=== PATIENT | male | born 1950 | race Caucasian/White ===

== ENCOUNTER 2016-09-21 11:25 | Outpatient (CLI) | payer MEDICARE ==
[~2016-09-21] VITALS: Ht 188 cm; Wt 118.2 kg
--- NOTE | ~2016-09-21 | HEMODYNAMI ---
PATIENT:JUMANA SANDOVAL MEDICAL RECORD: [id number] : 46 LOCATION:D.CAT ADMISSION DATE: 09/21/16 Generatedon:09/21/201615:23 Patient name: JUMANA SANDOVAL Patient #: [id number] SSN: : 1950 Date of study: 09/21/2016 Page: Of Hemodynamic Procedure Report Patient Data Patient Demographics Procedure consent was obtained First Name: JUMANA Gender: Male Last Name: LORI : 1950 Middle Initial: D Age: 66 year(s) Patient #: [id number] Race: Additional ID: [id number] Contact details Address: [address] [place] [address] State: [place] City: [place] Zip code: [address] Past Medical History Allergies Allergen Reaction Date Comments Reported Other allergy 06/28/2016 PCN, Sulfa Other allergy 09/21/2016 PCN, SULFA Admission Admission Data Admission Date: 09/21/2016 Admission Time: 11:25 Admit Source: Other Insurance Payor: Medicare Height (in.): 74 BSA: 2.43 (m2) Height (cm.): 187.96 BMI: 33.45 (kg/m2) Weight (lbs.): 260.54 Weight (kg.): 118.18 Medications upon Admission Medications Dosage Times Administered Last Remarks per Delivery Day Date and Time Clopidogrel Yes 09/21/2016 0:00 Lab Results Lab Result Date: 09/21/2016 Lab Result Time: 12:22 Biochemistry Name Units Result Min Max BUN mg/dl 18 --(---*)-- 7 18 Creatinine mg/dl 1 --(--*-)-- 0.6 1.3 CBC Name Units Result Min Max Hematocrit % 42.9 --(*---)-- 42 54 Hemoglobin g/dl 14 --(*---)-- 13.5 17.5 Procedure Procedure Types Cath Procedure Peripheral Cath Diagnostic Procedure Cath Peripheral Ycacu-Czkxopo-Uwr-Off Procedure Description Procedure Date Procedure Date: 09/21/2016 Procedure Start Time: 15:05 Procedure End Time: 15:22 Procedure Staff Name Function Zak Mckeon MD Performing Physician Fidel Wen RT Scrub Thea Nunez RN Nurse Juno Mas RT Monitor Renetta Valenzuela RT Monitor Procedure Data Cath Procedure Fluoroscopy Diagnostic fluoroscopy Total fluoroscopy Time: 1.5 time: 1.5 min min Diagnostic fluoroscopy Total fluoroscopy dose: 284 dose: 284 mGy mGy Contrast Material Contrast Material Type Amount (ml) Isovue 300 136 Entry Location Entry Primary Successful Side Size Upsize Upsize Entry Closure Succes sful Closure Location (Fr) 1 (Fr) 2 (Fr) Remarks Device Remarks Femoral Left 5 Fr Exoseal artery Estimated blood loss: 5 ml Diagnostic catheters Device Type Used For End Catheter Placement Cordis Tempo 5Fr UF Abdominal catheter aortogram with runoff Procedure Complications No complications Procedure Medications Medication Administration Route Dosage Oxygen NC 2 l/min Heparin Flush Bag added to field 2 bags (1000units/500ml NS) Lidocaine 2% added to field 20 Versed I.V. 1 mg Fentanyl I.V. 50 mcg Versed I.V. 1 mg Fentanyl I.V. 50 mcg Versed I.V. 0.5 mg Fentanyl I.V. 50 mcg Hemodynamics Rest BSA: 2.43 (m2) HGB: 14 (g/dl) O2 Consumption: Estimated: 288.64 (ml/min) O2 Cons umption indexed: Estimated:118.78 (ml/min/m) Heart Rate: 77 (bpm) Snapshots Pre Cath Intra NCS Post Cath Vital Signs Time Heart Resp SPO2 etCO2 [id number] NIBP (mmHg) Rhythm Pain Sedatio n Rate (ipm) (%) (mmHg) (mmHg) Status Level (bpm) 14:42:46 74 15 98 0 0 168/106(157) NSR 0 (11) 10(A) , No pain 14:47:06 77 17 96 0 0 168/98(152) NSR 0 (11) 10(A) , No pain 14:51:26 72 15 95 0 0 158/96(124) NSR 0 (11) 10(A) , No pain 14:55:44 77 15 96 0 0 155/99(134) NSR 0 (11) 10(A) , No pain 15:00:02 74 16 96 0 0 157/90(142) NSR 0 (11) 10(A) , No pain 15:04:20 76 16 95 0 0 157/93(140) NSR 0 (11) 10(A) , No pain 15:08:39 70 21 97 0 0 158/94(125) NSR 0 (11) 9(A) , No pain 15:12:57 82 16 95 0 0 151/93(131) NSR 0 (11) 9(A) , No pain 15:15:14 76 16 97 0 0 165/96(134) NSR 0 (11) 10(A) , No pain 15:19:32 76 10 97 0 0 161/98(135) NSR 0 (11) 10(A) , No pain Medications Time Medication Route Dose Verified Delivered Reason Notes Effec tiveness by by 14:45:59 Oxygen NC 2 Zak Thea Per l/min Mike Nunez RN physician 14:46:06 Heparin Flush added 2 Zak Zak used for Bag to bags Mike Mckeon MD procedure (1000units/500ml field NS) 14:46:14 Lidocaine 2% added 20ml Zak Zak used for to vial Mike Mckeon MD procedure field 14:59:49 Versed I.V. 1 mg Zak Thea for Mike Nunez RN sedation 15:00:03 Fentanyl I.V. 50 Zak Thea for mcg Mike Nunez RN sedation 15:03:54 Versed I.V. 1 mg Zak Thea for Mike Nunez RN sedation 15:04:01 Fentanyl I.V. 50 Zak Thea for mcg Mike Nunez RN sedation 15:06:32 Versed I.V. 0.5 Zak Thea for mg Mike Nunez RN sedation 15:06:35 Fentanyl I.V. 50 Zak Thea for mcg Mike Nunez RN sedation Procedure Log Time Note 14:26:51 Informed consent obtained and on chart 14:27:11 Admit Source: Other 14:27:14 Fidel Wen RT(R) sent for patient. Start room use. 14:27:14 Time tracking: Regular hours 14:27:18 Plan of Care:Hemodynamics will remain stable., Cardiac rhythm will remain stable., Comfort level will be maintained., Respiratory function will remain adequate., Patient/ family verbilizes understanding of procedure., Procedure tolerated without complication., Recovers from procedure without complications.. 14:29:42 ACCPatient has been prescribed/administered the following anti-anginal medication within the last 2 weeks: Beta Natividad, NICOL-Inhibitor 14:29:45 Diagnostic Cath status Elective 14:31:13 Insurance Payor : Medicare 14:35:50 Patient received from Pre/Post Procedure Room to CCL 1 Alert and oriented. Tansferred to table in Supine position. 14:35:50 Warm blankets applied, and musa hugger turned on for patient comfort. 14:35:51 Correct patient and procedure confirmed by team. 14:35:51 ECG and BP/O2 sat monitors applied to patient. 14:36:05 H&P Date Dictated: 09/14/2016 Within 30 days and on chart., H&P Addendum completed by physician on day of procedure. (MUST COMPLETE FOR ALL OUTPATIENTS). 14:41:35 Vital chart was started 14:45:59 Oxygen 2 l/min NC was given by Thea Nunez RN; Per physician; 14:46:06 Heparin Flush Bag (1000units/500ml NS) 2 bags added to field was given by Zak Mckeon MD; used for procedure; 14:46:14 Lidocaine 2% 20ml vial added to field was given by Zak Mckeon MD; used for procedure; 14:51:34 Baseline sample Acquired. 14:51:39 Rhythm: sinus rhythm 14:51:40 Full Disclosure recording started 14:51:42 Pre-procedure instructions explained to patient. 14:51:42 Pre-op teaching completed and patient verbalized understanding. 14:51:46 Family in waiting room. 14:51:47 Patient NPO since Midnight. 14:51:58 Patient allergic to Other allergyPCN, SULFA 14:52:00 Is the patient allergic to Iodine/contrast media? No. 14:52:01 Is patient on blood thinner?Yes 14:52:04 ACC The patient was administered the following blood thiners within the last 24 hours: ACCPlavix 14:52:06 Patient diabetic? Yes. 14:52:07 If diabetic: On Metformin? No 14:52:10 Previous problem with sedation/anesthesia? No ? 14:52:11 Snore? Yes 14:52:12 Sleep apnea? No 14:52:13 Deviated septum? No 14:52:14 Opens mouth fully? Yes 14:52:15 Sticks out tongue? Yes 14:52:21 Airway obstruction? Yes COPD 14:52:29 Dentures? No ? 14:52:34 Pre procedure: right dorsailis pedis pulse 1+ Palpable, but thready & weak; easily obliterated 14:52:36 Pre procedure: left dorsailis pedis pulse 1+ Palpable, but thready & weak; easily obliterated 14:52:49 IV patent on arrival in left hand with 0.9% NaCl at [facility]. 14:54:15 Lab Result : BUN 18 mg/dl 14:54:15 Lab Result : Hemoglobin 14 g/dl 14:54:15 Lab Result : Creatinine 1 mg/dl 14:54:15 Lab Result : Hematocrit 42.9 % 14:54:51 Lab results completed and on chart. 14:54:54 Bilateral groins area was prepped with chlora-prep and draped in sterile fashion 14:54:56 Alarms reviewed by R. N. 14:54:56 Sharps counted by scrub and verified by R.N. 14:55:02 Tegaderm 4 x 4 opened to sterile field. 14:55:03 Acist Manifold opened to sterile field. 14:55:03 Acist Hand Control opened to sterile field. 14:55:05 Acist Syringe opened to sterile field. 14:55:05 Bag Decanter opened to sterile field. 14:55:06 Medline Cath Pack opened to sterile field. 14:55:07 Terumo 5Fr [place] Sheath opened to sterile field. 14:55:07 St [place] 260cm J .035 wire opened to sterile field. 14:56:45 Patient Height : 74 inches 14:56:52 Patient Weight : 260.54 lbs 14:59:16 Zero performed for pressure channel P1 14:59:30 --------ALL STOP TIME OUT------ 14:59:30 Final Timeout: patient, procedure, and site verified with staff and physician. All members of the team are in agreement. 14:59:32 Bilateral groins site verified by team. 14:59:37 Physical assessment completed. ASA score P 2 - A patient with mild systemic disease as per Zak Mckeon MD. 14:59:39 Sedation plan: IV Moderate Sedation Versed, Fentanyl 14:59:49 Versed 1 mg I.V. was given by Thea Nunez RN; for sedation; 15:00:03 Fentanyl 50 mcg I.V. was given by Thea Nunez RN; for sedation; 15:03:54 Versed 1 mg I.V. was given by Thea Nunez RN; for sedation; 15:04:01 Fentanyl 50 mcg I.V. was given by Thea Nunez RN; for sedation; 15:05:09 Procedure started. 15:05:21 Jhonny Chiu RT(R) was relieved by Renetta Valenzuela RT(R) as monitoring person 15:05:31 Local anesthetic to left femerol artery with Lidocaine 2% by Zak Mckeon MD.INITIAL ACCESS ONLY 15:06:32 Versed 0.5 mg I.V. was given by Thea Nunez RN; for sedation; 15:06:35 Fentanyl 50 mcg I.V. was given by Thea Nunez RN; for sedation; 15:07:07 A 5 Fr sheath was inserted into the Left Femoral artery 15:07:54 A Cordis Tempo 5Fr UF catheter was advanced over the wire and used for Abdominal aortogram with runoff. 15:13:01 Cordis 5Fr Exoseal opened to sterile field. 15:13:15 Sheath removed intact; hemostasis achieved with Exoseal to the Left Femoral artery. 15:13:18 Procedure ended.(Physican Out) 15:13:31 Fluoroscopy time 01.50 minutes. 15:13:46 Fluoroscopy dose: 284 mGy 15:13:46 Flurop Dose total: 284 15:13:59 Contrast amount:Isovue 300 136ml. 15:14:00 Sharps counted by scrub and verified by R.N. 15:14:02 Insertion/operative site no bleeding no hematoma. 15:15:20 Post-op/insertion site Left Femoral artery dressed using a 4 x 4 and Tegaderm. 15:15:24 Post left femerol artery:stable, clean and dry 15:15:26 Post Procedure Pulses reassessed and unchanged 15:15:28 Post-procedure physical assessment completed. ASA score P 2 - A patient with mild systemic disease as per Zak Mckeon MD. 15:15:31 Post procedure rhythm: unchanged. 15:15:33 Estimated blood loss: 5 ml 15:15:35 Post procedure instruction explained to patient.Patient verbalizes understanding. 15:15:36 Patient needs reinforcement of post procedure teaching. 15:15:49 Procedure Complication : No complications 15:16:02 See physician's report for complete and final results. 15:16:31 Procedure and supply charges have been captured, reviewed, submitted and are correct. 15:22:30 Vital chart was stopped 15:22:34 Report given to Pre/Post Procedure Room. 15:22:40 Patient transfered to Pre/Post Procedure Room with Stretcher. 15:22:48 Procedure ended. 15:22:48 Full Disclosure recording stopped 15:22:53 End room use (Document Last) Device Usage Item Manufacture Quantity Catalog Hospital Part Current Minimal Lot# / Name Number Charge Number Stock Stock [facility]ita [facility] [id number] [id number] 5 4 x 4 Acist Acist 1 92483 224311 873752 540163 5 Manifold [employer] Inc Acist Acist 1 91120 742740 469431 433378 5 Hand Medical [employer] Systems Inc Acist Acist 1 57602 235660 104685 544379 20 Syringe Medical Systems Inc Bag Microtek 1 2002S 363509 59472 876424 5 [employer] Medline Cardinal 1 [id number] 970684 17977 346951 5 Cath Health Pack Terumo Terumo 1 [id number] 551342 890298 201130 [address] [place] [address] [facility] [place] 1 984271 910466 290565 957993 30 260cm J .035 wire Cordis Cardinal 1 [id number] 320546 097903 047985 10 Tempo Health 5Fr UF catheter Cordis Cardinal 1 [id number] [id number] 560155 903639 10 5Fr Health Exoseal Signature Audit [place] Stage Time Signature Unsigned Intra-Procedure 09/21/2016 Renetta 3:23:03 PM Counts RT(R) Signatures Monitor : Juno Mas RT Signature : Date : Time : Monitor : Renetta Signature : Counts RT Date : Time : [address] [place] [address]
[~2016-09-21 11:25] MED LIST: ACTOS15 MG PO; ALTACE10 MG PO; GLIPIZIDE10 MG PO; PROTONIX40 MG PO; TOPROL XL25 MG PO
[2016-09-21] MEDS ORDERED: PLAVIX75 MG PO (12:34)
[2016-09-21 12:35] VITALS: BP 140/83; Ht 188 cm; Wt 118.2 kg
[2016-09-21 12:42] LABS: BASOPHILS 1.5 % (0.0-2.0); EOSINOPHILS 6.6 % (0-7); HEMATOCRIT 42.9 % (42.0-54.0); IMMATURE GRANULOCYTES 0.1 % (0-5); LYMPHOCYTES 21.9 % (15-50); MCH 30.5 pg (26.0-34.0); MCHC 32.6 g/dL (31.0-37.0); MCV 93.5 fL (80.0-100.0); MEAN PLATELET VOLUME 10.3 fL (7.4-10.4); MONOCYTES 10.7 % (2-11); NEUTROPHILS 59.2 % (40-80); PLATELET COUNT 163 10x3/uL (130-400); RBC 4.59 10x6/uL (4.20-6.10); RDW 14.2 % (11.5-14.5); WBC 7.3 10x3/uL (4.8-10.8)
[2016-09-21 13:16] LABS: CALC OSMOLALITY 288 mosm/kg (275-300); CALCIUM 8.7 mg/dL (8.5-10.1); CARBON DIOXIDE 28.1 mmol/L (21.0-32.0); CHLORIDE - SERUM 106 mmol/L (98-107); GLUCOSE 128 mg/dL (74-106); POTASSIUM - SERUM 4.1 mmol/L (3.5-5.1); SODIUM 143 mmol/L (136-145); UREA NITROGEN 18 mg/dL (7-18); eGFR NON AFRICAN AMERICAN 79 mL/min (90-120)
--- NOTE | 2016-09-21 15:50 | NUR ---
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 5 [place] EXOSEAL CDI TO LEFT GROIN WITH NO BLEEDING OR HEMATOMA NOTED AT SITE. PEDAL PULSES PALPABLE. PT INSTRUCTED TO KEEP HEAD FLAT TO PILLOW AND LEFT LEG STRAIGHT AND VERBALIZES UNDERSTANDING. AND CALL LIGHT AT SIDE, PT INSTRUCTED TO CALL FOR NEEDS AND VERBALIZES UNDERSTANDING. 1545 PO FLUIDS AT BEDSIDE, PT DENIES ANY C/O AT THIS TIME.
--- NOTE | 2016-09-21 16:35 | NUR ---
1545-LEFT GROIN CDI, NO HEMATOMA OR BLEEDING AT SITE. 1615-LEFT GROIN REMAINS SAME- NO BLEEDING NOTED
--- NOTE | 2016-09-21 17:00 | NUR ---
1700 CHEST PAIN DENIED 5 FR EXOSEAL L/GROIN CDI NO BLEEDING NO HEMATOMA NOTED. VSS AT SIDE 1730 REPOSITIONED TO SITTING WITH HOB UP 45 DEGREES. L/GROIN CDI AND CHEST PAIN DENIED. DISCHARGE IN PROGRESS
--- NOTE | 2016-09-21 18:25 | NUR ---
1750-IV D'C WITH CATH TIP INTACT, LEFT GROIN CDI-NO HEMATOMA NOTED, WRITTEN AND VERBAL INSTRUCTIONS GIVEN TO PT AND . DENIES FURTHUR NEEDS
--- NOTE | 2016-10-12 08:17 | OP ---
PATIENT NAME: JUMANA SANDOVAL MEDICAL RECORD: [id number] :46 LOCATION:D.CAT ADMISSION DATE: SURGEON: ROBE TAN M.D. DATE OF OPERATION: 09/21/2016 PROCEDURES PERFORMED: Aortofemoral Runoff INDICATION: A 66-year-old gentleman presents with lifestyle limiting claudication REFERRING PHYSICIAN: Zak Garza PA-C, Nga Crabtree. TECHNIQUE: A 5-[place] sheath was inserted in retrograde fashion in the right common femoral artery. Next, a UF catheter was advanced and placed to the level of T12. Power injection was then performed to visualize the distal aorta. This catheter was pulled down to the bifurcation. At this point, right and left lower extremity angiograms were then performed. FINDINGS: Distal aorta is of good caliber. There is no evidence of any stenosis or aneurysm. Both kidney received a single arterial supply. Both renal arteries are widely patent. The right common iliac artery is large in caliber and widely patent. The right common femoral artery is large in caliber and widely patent. Right superficial artery is large in caliber. It has mild irregularities, but nothing worse than 20%. Right popliteal artery is large in caliber and widely patent. There appears to be 3-vessel runoff below the knee. The left common iliac artery is large in caliber and widely patent. Left common femoral artery is large in caliber and widely patent. Left superficial artery is large in caliber and widely patent. Left popliteal artery is large in caliber and widely patent. Below the knee, there appears to be 3-vessel runoff. IMPRESSION: Lower extremity angiogram revealed no evidence of any significant peripheral vascular disease. RECOMMENDATIONS: I suspect his discomfort may be from his low back. There is no evidence of any circulatory issues. TRANSINT:[id number] Voice Confirmation ID: [id number] DOCUMENT ID: [id number] ROBE TAN M.D. at 0817 CC: [id number] DICTATION DATE: 09/21/16 1526 WINDER CONTORT OPERATOR: 09/22/16 0040 DEP CLI 09/21/16 [place] [address]
== END 2016-09-21 18:00 | disposition home or self-care (01) ==
LOC: D.CATH 11:25
PROVIDERS: Internal Medicine Cardiovascular Disease
DX: M79.605 Pain in left leg (principal); M79.604 Pain in right leg; M54.5 Low back pain

== ENCOUNTER → 2018-06-27 11:28 | Outpatient (CLI) | payer MEDICARE ==
[2016-09-21 12:35] VITALS: BMI 33.4
[~2018-06-27 11:28] MED LIST changes: +PLAVIX75 MG PO
== END | disposition home or self-care (01) ==
LOC: D.HCCARDIO 11:28
DX: R07.89 Other chest pain (principal)

== ENCOUNTER 2018-07-19 11:04 | Outpatient (CLI) | payer MEDICARE ==
[~2018-07-19] VITALS: Ht 188 cm; Wt 113.6 kg
--- NOTE | ~2018-07-19 | HEMODYNAMI ---
PATIENT:JUMANA SANDOVAL MEDICAL RECORD: [id number] : 46 LOCATION:D.CAT ADMISSION DATE: 07/19/18 Generatedon:07/19/201813:47 Patient name: JUMANA SANDOVAL Patient #: [id number] SSN: : 1950 Date of study: 07/19/2018 Page: Of Hemodynamic Procedure Report Patient Data Patient Demographics Procedure consent was obtained First Name: JUMANA Gender: Male Last Name: LORI : 1950 Middle Initial: D Age: 68 year(s) Patient #: [id number] Race: Additional ID: [id number] Contact details Address: [address] [place] [address] State: [place] City: [place] Zip code: [address] Past Medical History Allergies Allergen Reaction Date Comments Reported Other allergy 06/28/2016 PCN, Sulfa Other allergy 09/21/2016 PCN, SULFA Sulfa drugs 07/19/2018 Penicillins 07/19/2018 Admission Admission Data Admission Date: 07/19/2018 Admission Time: 11:04 Admit Source: Other Lab Results Lab Result Date: 07/19/2018 Lab Result Time: 11:52 Biochemistry Name Units Result Min Max BUN mg/dl 29 --(----)-* 7 18 Creatinine mg/dl 1.2 --(---*)-- 0.6 1.3 CBC Name Units Result Min Max Hematocrit % 50.1 --(--*-)-- 42 54 Hemoglobin g/dl 16.6 --(---*)-- 13.5 17.5 Procedure Procedure Types Cath Procedure Diagnostic Procedure C [facility] w/Coronaries Sedation Charges Moderate Sedation up to 15 minutes PCI Procedure Coronary Stent Coronary Stent Initial Procedure Description Procedure Date Procedure Date: 07/19/2018 Procedure Start Time: 13:12 Procedure End Time: 13:42 Procedure Staff Name Function Zak Mckeon MD Performing Physician Juno Mas RT Monitor Rodney Wen RT Scrub Erica Geremias RN Nurse Procedure Data Cath Procedure Fluoroscopy Diagnostic fluoroscopy Total fluoroscopy Time: 5.5 time: 5.5 min min Diagnostic fluoroscopy Total fluoroscopy dose: dose: 1457 mGy 1457 mGy Contrast Material Contrast Material Type Amount (ml) Isovue 300 128 Entry Location Entry Primary Successful Side Size Upsize Upsize Entry Closure Succes sful Closure Location (Fr) 1 (Fr) 2 (Fr) Remarks Device Remarks Femoral Right 5 Fr 6 Fr Exoseal artery Short Estimated blood loss: 10 ml Diagnostic catheters Device Type Used For End Catheter Placement MULTIPACK JL 4.0 5Fr Procedure catheter MULTIPACK 3DRC 5Fr Procedure catheter MULTIPACK Pigtail 5 Fr Procedure catheter Procedure Complications No complications Procedure Medications Medication Administration Route Dosage 0.9% NaCl I.V. 100 ml/hr Oxygen etCO2 Nasal cannula 2 l/min Lidocaine 2% added to field 20 Heparin Flush Bag added to field 2 bags (1000units/500ml NS) Versed I.V. 2 mg Fentanyl I.V. 50 mcg Versed I.V. 1 mg Fentanyl I.V. 25 mcg Heparin Bolus I.V. 95916 units Versed I.V. 1 mg Fentanyl I.V. 25 mcg Versed I.V. 2 mg Plavix P.O. 600 mg Hemodynamics Rest HGB: 16.6 (g/dl) Heart Rate: 71 (bpm) Pressure Samples Time Site Value (mmHg) Purpose Heart Use Rate(bpm) 13:17 LV 155/-2,20 Snapshot 80 13:19 AO 163/84(117) Pullback 69 13:19 LV 157/-1,28 Pullback 69 Gradients Valve Time Site 1 Site 2 Mean SEP/DFP Peak To Heart Use (mmHg) (sec/min) Peak Rate (mmHg) (bpm) Aortic 13:19 LV AO 0 5 0 69 157/-1,28 163/84(117) Calculations Valve P-P Mean Valve Index Valve Source Name Gradient Area Flow (cm2) Aortic 0 0 0 0 Snapshots Pre Cath Intra NCS Post Cath Vital Signs Time Heart Resp SPO2 etCO2 NIBP (mmHg) Rhythm Pain Sedation Rate (ipm) (%) (mmHg) Status Level (bpm) 12:57:53 72 15 95 31 142/87(121) NSR 0 (11) 10(A) , No pain 13:02:13 69 17 97 32 138/80(109) NSR 0 (11) 10(A) , No pain 13:06:31 73 14 96 34.6 141/80(105) NSR 0 (11) 10(A) , No pain 13:10:47 72 13 97 35.9 136/83(110) NSR 0 (11) 9(A) , No pain 13:15:05 74 26 96 31.4 137/81(112) NSR 0 (11) 10(A) , No pain 13:19:17 80 11 97 32.9 141/89(121) NSR 0 (11) 9(A) , No pain 13:23:37 80 18 98 34.4 148/83(114) NSR 0 (11) 10(A) , No pain 13:27:51 83 27 95 34.4 135/84(111) NSR 0 (11) 10(A) , No pain 13:32:05 86 17 95 21.7 142/85(119) NSR 0 (11) 9(A) , No pain 13:36:29 86 19 97 36.7 159/93(112) NSR 0 (11) 9(A) , No pain 13:40:46 87 16 98 29.2 144/90(122) NSR 0 (11) 10(A) , No pain Medications Time Medication Route Dose Verified Delivered Reason Notes Effectiveness by by 12:57:34 0.9% NaCl I.V. 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 2 mg Zak Erica for sedation Mike Archuleta RN 13:08:59 Fentanyl I.V. 50 Zak Erica for sedation mcg Mike Archuleta RN 13:15:53 Versed I.V. 1 mg Zak Erica for sedation Mike Archuleta RN 13:15:57 Fentanyl I.V. 25 Zak Erica for sedation mcg Mike Archuleta RN 13:24:07 Heparin Bolus I.V. 09600 Zak Erica for verif ied units Mike Archuleta anticoagulation with Dr. PUJA Mckeon 13:27:12 Versed I.V. 1 mg Zak Erica for sedation Mike Archuleta RN 13:27:17 Fentanyl I.V. 25 Zak Erica for sedation mcg Mike Archuleta RN 13:30:23 Versed I.V. 2 mg Zak Erica for sedation Mike Archuleta RN 13:39:10 Plavix P.O. 600 Zak Erica for mg Mike Archuleta antiplatelet RN therapy Procedure Log Time Note 12:42:11 Informed consent obtained and on chart 12:42:21 Admit Source: Other 12:42:36 Diagnostic Cath status Elective 12:42:38 Rodney Suit RT(R) sent for patient. Start room use. 12:42:38 Time tracking: Regular hours (M-F 7:00 - 5:00) 12:42:42 Plan of Care:Hemodynamics will remain stable., Cardiac rhythm will remain stable., Comfort level will be maintained., Respiratory function will remain adequate., Patient/ family verbilizes understanding of procedure., Procedure tolerated without complication., Recovers from procedure without complications.. 12:42:53 H&P Date Dictated: 07/19/2018 Within 30 days and on chart., H&P Addendum completed by physician on day of procedure. (MUST COMPLETE FOR ALL OUTPATIENTS). 12:50:02 Patient received from Pre/Post Procedure Room to CCL 1 Alert and oriented. Tansferred to table in Supine position. 12:50:04 Warm blankets applied, and musa hugger turned on for patient comfort. 12:50:04 Correct patient and procedure confirmed by team. 12:50:05 ECG and BP/O2 sat monitors applied to patient. 12:50:08 Pre-procedure instructions explained to patient. 12:50:09 Pre-op teaching completed and patient verbalized understanding. 12:50:10 Family in waiting room. 12:50:11 Patient NPO since Midnight. 12:50:55 Patient allergic to Sulfa drugs 12:51:02 Patient allergic to Penicillins 12:56:48 Vital chart was started 12:57:34 0.9% NaCl 100 ml/hr I.V. was administered by Erica Archuleta RN; used for procedure; 12:57:40 Oxygen 2 l/min etCO2 Nasal cannula was administered by Erica Archuleta RN; used for procedure; 12:57:47 Lidocaine 2% 20ml vial added to field was administered by Zak Mckeon MD; for local anesthetic; 12:57:52 Heparin Flush Bag (1000units/500ml NS) 2 bags added to field was administered by Zak Mckeon MD; used for procedure; 13:05:19 Baseline sample Acquired. 13:05:23 Rhythm: sinus rhythm 13:05:25 Full Disclosure recording started 13:05:30 Is the patient allergic to Iodine/contrast media? No. 13:05:34 Is patient on blood thinner?No 13:05:34 Patient diabetic? Yes. 13:05:35 If diabetic: On Metformin? No 13:05:38 Previous problem with sedation/anesthesia? No ? 13:05:40 Snore? Yes 13:05:41 Sleep apnea? No 13:05:41 Deviated septum? No 13:05:42 Opens mouth fully? Yes 13:05:43 Sticks out tongue? Yes 13:06:29 Airway obstruction? Yes emphysema 13:06:33 Dentures? No ? 13:06:36 Pre procedure: right dorsailis pedis pulse 2+ Normal; easily identifiable; not easily obliterated 13:06:38 Patient pain scale 0/10 ?. 13:06:43 IV patent on arrival in left wrist with 0.9% NaCl at [facility]. 13:08:06 Lab Result : BUN 29 mg/dl 13:08:06 Lab Result : Creatinine 1.2 mg/dl 13:08:07 Lab Result : Hematocrit 50.1 % 13:08:07 Lab Result : Hemoglobin 16.6 g/dl 13:08:09 Lab results completed and on chart. 13:08:11 Right groin area was prepped with chlora-prep and draped in sterile fashion 13:08:11 Alarms reviewed by R. N. 13:08:12 Sharps counted by scrub and verified by R.N. 13:08:14 Use device set Femoral Dx 13:08:15 ACIST Syringe (64794) opened to sterile field. 13:08:15 Bag Decanter (2002S) opened to sterile field. 13:08:16 Medline Cath Pack ([id number]) opened to sterile field. 13:08:16 ACIST Hand Control (68134) opened to sterile field. 13:08:17 ACIST Manifold (47659) opened to sterile field. 13:08:18 Tegaderm 4 x 4 (1626W) opened to sterile field. 13:08:19 SHEATH 5FR [place] (FAY300) opened to sterile field. 13:08:22 DIAGNOSTIC Multipack 5Fr catheter set (JG8489) opened to sterile field. 13:08:23 DIAGNOSTIC WIRE .035 260cm J wire (414579) opened to sterile field. 13:08:28 Physician arrived 13:: --------ALL STOP TIME OUT------ :: Final Timeout: patient, procedure, and site verified with staff and physician. All members of the team are in agreement. 13:08:30 Right groin site verified by team. 13:08:33 Physical assessment completed. ASA score P 2 - A patient with mild systemic disease as per Zak Mckeon MD. 13:08:36 Sedation plan: IV Moderate Sedation Medication:Versed, Fentanyl 13:08:53 Versed 2 mg I.V. was administered by Erica Archuleta RN; for sedation; 13:08:59 Fentanyl 50 mcg I.V. was administered by Erica Archuleta RN; for sedation; 13:09:17 Zero performed for pressure channel P1 13:12:10 Zero performed for pressure channel P1 13:12:19 Procedure started. 13:12:21 Local anesthetic to right femoral artery with Lidocaine 2% by Zak Mckeon MD.INITIAL ACCESS ONLY 13:12:32 A 5 Fr sheath was inserted into the Right Femoral artery 13:13:57 A MULTIPACK JL 4.0 5Fr catheter was advanced over the wire and used for Procedure. 13:14:05 LCA angiography performed. 13:15:12 Catheter exchanged over wire. 13:15:17 A MULTIPACK 3DRC 5Fr catheter was advanced over the wire and used for Procedure. 13:15:53 Versed 1 mg I.V. was administered by Erica Archuleta RN; for sedation; 13:15:57 Fentanyl 25 mcg I.V. was administered by Eirca Archuleta RN; for sedation; 13:16:11 RCA angiography performed. 13:17:48 Catheter exchanged over wire. 13:17:54 A MULTIPACK Pigtail 5 Fr catheter was advanced over the wire and used for Procedure. 13:18:05 LV gram done using GILLESPIE 13:18:07 Injector settings: Ml/sec: 10, Volume: 20, 13:18:13 EF : 60 % 13:18:14 LV hemodynamics recorded. 13:20:46 Catheter removed. 13:20:52 SHEATH 6FR [place] (WOL903) opened to sterile field. 13:21:03 BMW 300cm [place] 2 J wire ([id number]) opened to sterile field. 13:21:04 TUBING High Pressure Extension Tubing (Mike) ([id number]) opened to sterile field. 13:21:04 INFLATOR Merit BasixCompak (WX7023) opened to sterile field. 13:21:18 Sheath upsized to a 6 Fr Short. 13:22:03 GUIDE 6FR XBLAD 4.0 catheter ([id number]) opened to sterile field. 13:22:44 6 Fr XBLAD 4 guide catheter was inserted over the wire 13:22:52 BMW wire advanced. 13:24:07 Heparin Bolus 69434 units I.V. was administered by Erica Archuleta RN; for anticoagulation; verified with Dr. Mckeon 13:26:01 Wire advanced across lesion. 13:27:12 Versed 1 mg I.V. was administered by Erica Archuleta RN; for sedation; 13:27:17 Fentanyl 25 mcg I.V. was administered by Erica Archuleta RN; for sedation; 13:29:20 Inflate balloon Inflation number: 1 A MAVERICK 3.0 X 30 balloon ([id number]) was prepped and advanced across the Undefined1, then inflated to 13 MARIA ELENA for 0:10 (min:sec). 13:30:23 Versed 2 mg I.V. was administered by Erica Archuleta RN; for sedation; 13:31:20 Balloon removed over the wire. 13:34:58 Place stent Inflation Number: 1 A ANIA OTW 2.75 x 12 stent ([id number]) was prepped and advanced across the Dist LAD. The stent was deployed at 13 MARIA ELENA for 0:10 (min:sec). 13:35:33 Stent catheter was removed intact over wire. 13:35:34 Wire removed. 13:35:35 Guide catheter removed. 13:35:42 EXOSEAL 6Fr (EX600) opened to sterile field. 13:36:00 Sheath removed intact; hemostasis achieved with Exoseal to the Right Femoral artery. 13:36:03 Procedure ended.(Physican Out) 13:37:22 Fluoroscopy time 05.50 minutes. 13:37:28 Flurop Dose total: 1457 13:37:28 Fluoroscopy dose: 1457 mGy 13:37:38 Contrast amount:Isovue 300 128ml. 13:37:40 Sharps counted by scrub and verified by R.N. 13:37:41 Insertion/operative site no bleeding no hematoma. 13:37:43 Post-op/insertion site Right Femoral artery dressed using a 4 x 4 and Tegaderm. 13:37:46 Post right femoral artery:stable, soft, clean and dry 13:39:10 Plavix 600 mg P.O. was administered by Erica Archuleta RN; for antiplatelet therapy; 13:39:44 Post Procedure Pulses reassessed and unchanged 13:39:49 Post-procedure physical assessment completed. ASA score P 2 - A patient with mild systemic disease as per Zak Mckeon MD. 13:39:53 Post procedure rhythm: unchanged. 13:39:58 Estimated blood loss: 10 ml 13:40:00 Post procedure instruction explained to patient.Patient verbalizes understanding. 13:40:00 Patient needs reinforcement of post procedure teaching. 13:40:09 Procedure type changed to Cath procedure, Diagnostic procedure, LHC, LHC w/Coronaries, Sedation Charges, Moderate Sedation up to 15 minutes, PCI procedure, Coronary Stent, Coronary Stent Initial 13:42:06 Procedure and supply charges have been captured, reviewed, submitted and are correct. 13:42:09 Procedure Complication : No complications 13:42:10 Vital chart was stopped 13:42:12 See physician's report for complete and final results. 13:42:13 Report given to Pre/Post Procedure Room. 13:42:15 Patient transfered to Pre/Post Procedure Room with Stretcher. 13:42:18 Procedure ended. 13:42:18 Full Disclosure recording stopped 13:42:27 End room use (Document Last) 13:46:45 FEMSTOP Gold ([id number]) opened to sterile field. 13:46:48 Femstop placed over the right femoral artery at 143 mmHg. Hemostasis achieved. Intervention Summary Intervention Notes Time ActionType Lesion and Equipment Action# Pressure Duration Attributes Used 13:29:20 Inflate Undefined1 MAVERICK 3.0 1 13 00:10 balloon X 30 balloon ([id number]) 13:34:58 Place stent Dist LAD ANIA OTW 2.75 1 13 00:10 x 12 stent ([id number]) Device Usage Item Name Manufacture Quantity Catalog Number Hospital Part Current M inimal Lot# / Charge Number Stock Stock Serial# Code ACIST Syringe Acist 1 93324 241849 597080 058412 2 0 (94958) Medical Systems Inc Bag Decanter Microtek 1 2001S 500409 99256 638871 5 (2001S) Medical Inc. Medline Cath Medline 1 [id number] 634379 11626 844922 5 Pack ([id number]) ACIST Hand Acist 1 56001 497651 715046 240494 5 Control Medical (92214) Systems Inc ACIST Acist 1 63962 964793 898837 342479 5 Manifold Medical (17153) Systems Inc Tegaderm 4 x 3M 1 1626W 443399 659667 824653 5 4 (1626W) SHEATH 5FR Terumo 1 JYK046 203624 714501 904988 5 [place] (QYH034) DIAGNOSTIC Cardinal 1 FK7928 800738 86573 869106 3 0 Multipack 5Fr Health catheter set (GZ2727) DIAGNOSTIC [place] 1 294376 842747 717097 754584 3 0 WIRE .035 260cm J wire (214391) MULTIPACK JL Cardinal 1 572804 5 4.0 5Fr Health catheter MULTIPACK Cardinal 1 977516 5 3DRC 5Fr Health catheter MULTIPACK Cardinal 1 868026 5 Pigtail 5 Fr Health catheter SHEATH 6FR Terumo 1 HJE792 365603 275038 488277 4 0 [place] (TJY672) BMW 300cm Shields 1 [id number] 089441 132703 810800 5 [place] 2 J Vascular wire (8437462K) TUBING High Merit 1 [id number] 580270 90464 319909 1 0 Pressure Medical Extension Tubing (Mckeon) (NH3175V) INFLATOR Merit 1 QH2667 160530 234268 309738 1 5 [facility] Medical BasixCompak (LV4894) GUIDE 6FR Cardinal 1 10795970 373122 052617 500328 3 XBLAD 4.0 Health catheter (14294103) MAVERICK 3.0 [place] 1 [id number] 836568 565674 234858 1 [id number] X 30 balloon Scientific ([id number]) ANIA OTW 2.75 Medtronic 1 [id number] 335713 1169432 285420 5 [id number] x 12 stent ([id number]) EXOSEAL 6Fr Cardinal 1 EX600 129203 313337 869035 1 0 (EX600) [facility] FEMSTOP Gold [place] 1 W68772 968751 887546 698360 5 (A16160) Signature Audit [place] Stage Time Signature Unsigned Intra-Procedure 07/19/2018 Juno Mas 1:47:55 PM RT(R) Signatures Monitor : Juno Mas RT Signature : Date : Time : [place] [id number] [place] [id number]
[2018-07-19] MEDS ORDERED: NEURONTIN600 MG PO (11:34)
[2018-07-19] MEDS ORDERED: ULTRAM50 MG PO (11:35)
[2018-07-19] MEDS ORDERED: CHANTIX 1 MG TAB1 MG PO (11:36)
[2018-07-19] MEDS ORDERED: AMBIEN5 MG PO (11:37)
[2018-07-19 11:47] VITALS: BP 128/80; Ht 188 cm; Wt 113.6 kg
[2018-07-19 11:55] LABS: BASOPHILS 1.2 % (0-2); EOSINOPHILS 5.9 % (0-7); HEMATOCRIT 50.1 % (42.0-54.0); HEMOGLOBIN 16.6 g/dL (13.5-17.5); IMMATURE GRANULOCYTES 0.3 % (0-5); LYMPHOCYTES 25.4 % (15-50); MCH 30.4 pg (26.0-34.0); MCHC 33.1 g/dL (31.0-37.0); MCV 91.8 fL (80.0-100.0); MEAN PLATELET VOLUME 10.9 fL (7.4-10.4); MONOCYTES 12.1 % (2-11); NEUTROPHILS 55.1 % (40-80); PLATELET COUNT 184 10x3/uL (130-400); RBC 5.46 10x6/uL (4.20-6.10); RDW 15.1 % (11.5-14.5); WBC 6.8 10x3/uL (4.8-10.8)
[2018-07-19 12:03] LABS: ANION GAP 16.8 mmol/L (8-16); CALCIUM 9.1 mg/dL (8.5-10.1); CARBON DIOXIDE 23.6 mmol/L (21.0-32.0); CREATININE - SERUM 1.2 mg/dL (0.6-1.3); POTASSIUM - SERUM 4.4 mmol/L (3.5-5.1)
[2018-07-19] MEDS ORDERED: PLAVIX75 MG PO (13:48)
[2018-07-19] MEDS ORDERED: BAYER CHEWABLE81 MG PO (13:49)
== END 2018-07-19 18:10 | disposition home or self-care (01) ==
LOC: D.CATH 11:04
PROVIDERS: Internal Medicine Cardiovascular Disease
DX: I25.119 Atherosclerotic heart disease of native coronary artery with unspecified angina pectoris (principal); E11.9 Type 2 diabetes mellitus without complications; I10 Essential (primary) hypertension; J44.9 Chronic obstructive pulmonary disease, unspecified; R94.30 Abnormal result of cardiovascular function study, unspecified
CPT/HCPCS: 93458; C9600

== ENCOUNTER → 2020-03-04 10:37 | Outpatient (CLI) | payer MEDICARE ==
[2018-07-19 11:47] VITALS: BMI 32.1
[~2020-03-04 10:37] MED LIST changes: +AMBIEN5 MG PO; +BAYER CHEWABLE81 MG PO; +CHANTIX 1 MG TAB1 MG PO; +NEURONTIN600 MG PO; +ULTRAM50 MG PO
== END | disposition home or self-care (01) ==
LOC: D.HCCARDIO 10:37
PROVIDERS: ATTEND Internal Medicine Cardiovascular Disease
DX: I25.10 Atherosclerotic heart disease of native coronary artery without angina pectoris (principal)

== ENCOUNTER 2020-03-26 11:08 | Day surgery (SDC) | payer MEDICARE ==
[~2020-03-26] VITALS: Ht 188 cm; Wt 108.0 kg
--- NOTE | ~2020-03-26 | HEMODYNAMI ---
PATIENT:JUMANA SANDOVAL MEDICAL RECORD: [id number] : 46 LOCATION:D.CAT ADMISSION DATE: 03/26/20 Generatedon:03/26/202013:22 Patient name: JUMANA SANDOVAL Patient #: [id number] SSN: : 1950 Date of study: 03/26/2020 Page: Of Hemodynamic Procedure Report Patient Data Patient Demographics Procedure consent was obtained First Name: JUMANA Gender: Male Last Name: LORI : 1950 Middle Initial: D Age: 69 year(s) Patient #: [id number] Race: Additional ID: [id number] Contact details [address]: [address] [place] [address] State: [place] City: [place] Zip code: [address] Past Medical History Allergies Allergen Reaction Date Comments Reported Other allergy 06/28/2016 PCN, Sulfa Other allergy 09/21/2016 PCN, SULFA Sulfa drugs 07/19/2018 Penicillins 07/19/2018 Other allergy 03/26/2020 PCN/SULFA Admission Admission Data Admission Date: 03/26/2020 Admission Time: 11:08 Arrival Date: 03/26/2020 Arrival Time: 0:00 Height (in.): 74 BSA: 2.39 (m2) Height (cm.): 187.96 BMI: 32.1 (kg/m2) Weight (lbs.): 250 Weight (kg.): 113.4 Lab Results Lab Result Date: 03/26/2020 Lab Result Time: 0:00 Biochemistry Name Units Result Min Max BUN mg/dl 21 --(----)-* 7 18 Creatinine mg/dl 1.1 --(--*-)-- 0.6 1.3 eGFR ml/min 70.33880 *-(----)-- 90 120 NONAFRICAN CBC Name Units Result Min Max Hematocrit % 47.8 --(-*--)-- 42 54 Hemoglobin g/dl 15.7 --(--*-)-- 13.5 17.5 Procedure Procedure Types Cath Procedure Diagnostic Procedure [facility] w/Coronaries Procedure Description Procedure Date Procedure Date: 03/26/2020 Procedure Start Time: 13:01 Procedure End Time: 13:19 Procedure Staff Name Function Zak Mckeon MD Performing Physician Rica Andrews RT Monitor Jaswinder Cartwright RN Nurse Jovana Porter RT Scrub Caes Joe MD Additional personnel Procedure Data Cath Procedure Fluoroscopy Diagnostic fluoroscopy Total fluoroscopy Time: 1.5 time: 1.5 min min Diagnostic fluoroscopy Total fluoroscopy dose: 570 dose: 570 mGy mGy Entry Location Entry Primary Successful Side Size Upsize Upsize Entry Closure Succes sful Closure Location (Fr) 1 (Fr) 2 (Fr) Remarks Device Remarks Femoral Right 5 Fr Exoseal artery Estimated blood loss: 5 ml Diagnostic catheters Device Type Used For End Catheter Placement MULTIPACK JL 4.0 5Fr Left Coronary catheter Angiography MULTIPACK 3DRC 5Fr Right Coronary catheter Angiography MULTIPACK Pigtail 5 Fr LV Angiography catheter Procedure Complications No complications Procedure Medications Medication Administration Route Dosage 0.9% NaCl I.V. 100 ml/hr Oxygen etCO2 Nasal cannula 3 l/min Heparin Flush Bag added to field 2 bags (1000units/500ml NS) Lidocaine 2% added to field 20 Refer to Anesthesia Notes for Sedation Medications Hemodynamics Rest BSA: 2.39 (m2) HGB: 15.7 (g/dl) O2 Consumption: Estimated: 273.11 (ml/min) O2 Co nsumption indexed: Estimated:114.27 (ml/min/m) Heart Rate: 67 (bpm) Pressure Samples Time Site Value (mmHg) Purpose Heart Use Rate(bpm) 13:08 LV 91/-3,7 Snapshot 73 13:09 AO 91/47(65) Pullback 73 13:09 LV 89/-4,7 Pullback 73 Gradients Valve Time Site 1 Site 2 Mean SEP/DFP Peak To Heart Use (mmHg) (sec/min) Peak Rate (mmHg) (bpm) Aortic 13:09 LV AO 0 7 0 73 89/-4,7 91/47(65) Calculations Valve P-P Mean Valve Index Valve Source Name Gradient Area Flow (cm2) Aortic 0 0 0 0 Snapshots Pre Cath Intra NCS Post Cath Vital Signs Time Heart Resp SPO2 etCO2 NIBP (mmHg) Rhythm Pain Sedation Rate (ipm) (%) (mmHg) Status Level (bpm) 12:35:00 65 22 100 23.1 136/93(108) NSR 0 (11) 10(A) , No pain 12:39:12 67 18 100 30.6 140/91(112) NSR 0 (11) 10(A) , No pain 12:43:26 69 21 100 0 146/92(117) NSR 0 (11) 10(A) , No pain 12:47:38 63 13 98 11.2 143/96(124) NSR 0 (11) 10(A) , No pain 12:51:52 70 24 98 29.8 146/95(131) NSR 0 (11) 10(A) , No pain 12:56:10 74 21 97 25.3 125/75(98) NSR 0 (11) 10(A) , No pain 13:00:24 79 24 97 10.4 118/74(98) NSR 0 (11) 10(A) , No pain 13:04:34 76 21 96 10.4 100/65(81) NSR 0 (11) 8(A) , No pain 13:08:43 79 16 98 14.9 105/60(83) NSR 0 (11) 8(A) , No pain 13:12:53 72 15 98 15.6 101/58(79) NSR 0 (11) 8(A) , No pain 13:17:01 73 16 99 14.9 99/65(79) NSR 0 (11) 9(A) , No pain Medications Time Medication Route Dose Verified Delivered Reason Notes Eff ectiveness by by 12:35:03 0.9% NaCl I.V. 100 Jaswinder Jaswinder Per ml/hr Gabbie Cartwright physician RN RN 12:35:16 Oxygen etCO2 3 Jaswinder Jaswinder for low 02 Nasal l/min Gabbie Cartwright sats cannula RN RN 12:35:29 Heparin Flush added 2 Jaswinder Jaswinder used for Bag to bags Gabbie Cartwright procedure (1000units/500ml field RN RN NS) 12:35:41 Lidocaine 2% added 20ml Jaswinder Jaswinder for local to vial Gabbie Cartwright anesthetic field RN RN 13:01:07 Refer to Jaswinder Jaswinder for Anesthesia Notes Gabbie Cartwright sedation for Sedation RN RN Medications Procedure Log Time Note 12:18:16 Informed consent obtained and on chart 12:22:25 Procedure Status Elective Heart Cath (OP). 12:22:30 Jaswinder Cartwright RN sent for patient. Start room use. 12:22:35 Time tracking: Regular hours (M-F 7:00 - 5:00) 12:22:49 Plan of Care:Hemodynamics will remain stable., Cardiac rhythm will remain stable., Comfort level will be maintained., Respiratory function will remain adequate., Patient/ family verbilizes understanding of procedure., Procedure tolerated without complication., Recovers from procedure without complications.. 12:23:52 Patient Height : 74 inches 12:24:21 Patient Weight : 250 lbs 12:25:04 Patient allergic to Other allergyPCN/SULFA 12:25:41 Patient received from Pre/Post Procedure Room to CCL 1 Alert and oriented. Tansferred to table in Supine position. 12:28:20 Warm blankets applied, and musa hugger turned on for patient comfort. 12:28:20 Correct patient and procedure confirmed by team. 12:28:23 ECG and BP/O2 sat monitors applied to patient. 12:29:02 Full Disclosure recording started 12:29:07 Pre-procedure instructions explained to patient. 12:29:08 Pre-op teaching completed and patient verbalized understanding. 12:29:10 Family in patients room. 12:29:12 Patient NPO since Midnight. 12:29:16 Is the patient allergic to Iodine/contrast media? No. 12:29:17 Is patient on blood thinner?No 12:29:18 Patient diabetic? Yes. 12:29:19 If diabetic: On Metformin? No 12:30:05 H&P Date Dictated: 02/05/2020 Within 30 days and on chart., H&P Addendum completed by physician on day of procedure. (MUST COMPLETE FOR ALL OUTPATIENTS). 12:30:13 Previous problem with sedation/anesthesia? No ? 12:30:14 Snore? Yes 12:30:15 Sleep apnea? No 12:30:16 Deviated septum? No 12:30:17 Opens mouth fully? Yes 12:30:18 Sticks out tongue? Yes 12:30:23 Airway obstruction? Yes EMPHYSEMA 12:30:28 Dentures? No ? 12:30:38 Pre procedure: right dorsailis pedis pulse 1+ Palpable, but thready & weak; easily obliterated 12:30:45 DRE ROMERO CRNA present and monitoring patient for TIVA. 12:31:52 IV patent on arrival in left antecubital with 0.9% NaCl at [facility]. 12::56 Right groin area was prepped with chlora-prep and draped in sterile fashion 12::57 Alarms reviewed by R. N. 12::57 Sharps counted by scrub and verified by R.N. 12:33:57 Vital chart was started 12:33:58 Baseline sample Acquired. 12:34:01 Rhythm: sinus rhythm 12:35:03 0.9% NaCl 100 ml/hr I.V. was administered by Jaswinder Cartwright RN; Per physician; Verbal order read back and verified. 12:35:16 Oxygen 3 l/min etCO2 Nasal cannula was administered by Jaswinder Cartwright RN; for low 02 sats; Verbal order read back and verified. 12:35:29 Heparin Flush Bag (1000units/500ml NS) 2 bags added to field was administered by Jaswinder Cartwright RN; used for procedure; Verbal order read back and verified. 12:35:41 Lidocaine 2% 20ml vial added to field was administered by Jaswinder Cartwright RN; for local anesthetic; Verbal order read back and verified. 12:41:50 Stress Test: yes; abnormal INFERIOR 12:42:04 Use device set Femoral Dx 12:42:08 ACIST Syringe (86883) opened to sterile field. 12:42:09 Bag Decanter (2001S) opened to sterile field. 12:42:10 Medline Cath Pack ([id number]) opened to sterile field. 12:42:13 ACIST Hand Control (77780) opened to sterile field. 12:42:14 ACIST Manifold (23619) opened to sterile field. 12:42:15 DIAGNOSTIC Multipack 5Fr catheter set ([id number]) opened to sterile field. 12:42:18 Tegaderm 4 x 4 (1626W) opened to sterile field. 12:42:20 SHEATH 5FR [place] (SVE984) opened to sterile field. 12:42:21 EMERALD Guide Wire (214-150) opened to sterile field. 12:47:47 Lab Result : Hemoglobin 15.7 g/dl 12:47:47 Lab Result : eGFR NONAFRICAN 70.03655 ml/min 12:47:47 Lab Result : BUN 21 mg/dl 12:47:47 Lab Result : Creatinine 1.1 mg/dl 12:47:47 Lab Result : Hematocrit 47.8 % 12:51:04 Physician responded to page. 13:00:38 Zero performed for pressure channel P1 13:00:47 Physician arrived 13:00:48 --------ALL STOP TIME OUT------ 13:00:49 Final Timeout: patient, procedure, and site verified with staff and physician. All members of the team are in agreement. 13:00:51 Right groin site verified by team. 13:00:58 Fire Safety Assessment: A--An alcohol-based skin anteseptic being used preoperatively., C--Open oxygen or nitrous oxide is being used., D--An ESU, laser, or fiber-optic light is being used. 13:01:04 Physical assessment completed. ASA score P 3 - A patient with severe systemic disease as per Zak Mckeon MD. 13:01:07 Refer to Anesthesia Notes for Sedation Medications was administered by Jaswinder Cartwright RN; for sedation; Verbal order read back and verified. 13:01:11 2) 60-89 Mildly reduced kidney function, and other findings (as for stage 1) point to kidney disease. 13:01:16 Maximum allowable contrast dose (3.7 X eGFR X 0.75)194 ml. 13:01:24 Sedation plan: TIVA Medication:Propofol 13:01:31 Procedure started. 13:01:37 Local anesthetic to right femoral artery with Lidocaine 2% by Zak Mckeon MD.INITIAL ACCESS ONLY 13:01:40 Zero performed for pressure channel P1 13:01:56 Zero performed for pressure channel P1 13:03:20 A 5 Fr sheath was inserted into the Right Femoral artery 13:03:52 Arrival Date: 03/26/2020 12:00:00 AM 13:04:06 A MULTIPACK JL 4.0 5Fr catheter was advanced over the wire and used for Left Coronary Angiography. 13:04:19 LCA angiography performed. 13:04:22 Injector settings: Ml/sec: 3, Volume: 6, 13:05:21 Catheter removed. 13:05:30 A MULTIPACK 3DRC 5Fr catheter was advanced over the wire and used for Right Coronary Angiography. 13:06:53 RCA angiography performed. 13:06:58 Injector settings: Ml/sec: 3, Volume: 6, 13:07:27 Catheter removed. 13:07:35 A MULTIPACK Pigtail 5 Fr catheter was advanced over the wire and used for LV Angiography. 13:08:37 LV gram done using GILLESPIE 13:08:41 Injector settings: Ml/sec: 5, Volume: 15, 13:08:54 EF : 55 % 13:09:04 LV hemodynamics recorded. 13:13:58 Catheter removed. 13:14:16 EXOSEAL 5Fr (EX500) opened to sterile field. 13:15:19 Sheath removed intact; hemostasis achieved with Exoseal to the Right Femoral artery. 13:15:23 Procedure ended.(Physican Out) 13:16:00 Contrast amount:Isovue 300 1.5ml. 13:16:05 Maximum allowable dose exceeded? No. 13:16:19 Fluoroscopy time 01.50 minutes. 13:16:48 Flurop Dose total: 570 13:16:48 Fluoroscopy dose: 570 mGy 13:16:56 Dose Area Product 76436 mGy/cm. 13:16:59 Sharps counted by scrub and verified by R.N. 13:17:04 Post-op/insertion site Right Femoral artery dressed using a 4 x 4 and Tegaderm. 13:17:09 Post-procedure physical assessment completed. ASA score P 3 - A patient with severe systemic disease as per Zak Mckeon MD. 13:17:59 Post procedure rhythm: unchanged. 13:18:03 Estimated blood loss: 5 ml 13:18:04 Post procedure instruction explained to patient.Patient verbalizes understanding. 13:18:05 Patient needs reinforcement of post procedure teaching. 13:18:17 Procedure and supply charges have been captured, reviewed, submitted and are correct. 13:18:52 Procedure Complication : No complications 13:19:04 Vital chart was stopped 13:19:10 [facility] Findings: mild to moderate CAD (<70%) 13:19:21 See physician's report for complete and final results. 13:19:24 Report given to Pre/Post Procedure Room. 13:19:28 Patient transfered to Pre/Post Procedure Room with Stretcher. 13:19:32 Procedure ended. 13:19:32 Full Disclosure recording stopped 13:19:35 End room use (Document Last) Device Usage Item Name Manufacture Quantity Catalog Hospital Part Current Minimal L ot# / Number Charge Number Stock Stock Serial# Code ACIST Acist 1 87916 [id number] 057924 [id number] 20 Syringe Medical (87786) Systems Inc Bag Microtek 1 2001S 242299 55935 532724 5 Decanter Medical Inc. (2001S) Medline Medline 1 [id number] 101706 43061 565110 5 Cath Pack ([id number]) ACIST Hand Acist 1 26361 515343 826536 603768 5 Control Medical (63368) Systems Inc ACIST Acist 1 32690 283432 224125 125334 5 Manifold Medical (81560) Systems Inc DIAGNOSTIC Cardinal 1 BX5578 349197 38048 938458 30 Multipack Health 5Fr catheter set (NI4884) Tegaderm 4 3M 1 1626W 594855 181635 212153 5 x 4 (1626W) SHEATH 5FR Terumo 1 BPP605 647825 028840 186610 5 [place] (UDR231) EMERALD Cardinal 1 502-455 910148 047665 942228 5 Guide Wire Health (502-455) MULTIPACK Cardinal 1 829532 5 JL 4.0 5Fr Health catheter MULTIPACK Cardinal 1 978199 5 3DRC 5Fr Health catheter MULTIPACK Cardinal 1 620788 5 Pigtail 5 Health Fr catheter EXOSEAL 5Fr Cardinal 1 EX500 794153 819353 981438 10 (EX500) Health Signature Audit [place] Stage Time Signature Unsigned Intra-Procedure 03/26/2020 Rica 1:20:00 PM Juliana RT(R) (CV) Intra-Procedure 03/26/2020 Jaswinder 1:20:25 PM aGbbie LUO Intra-Procedure 03/26/2020 Zak Mckeon MD 1:22:32 PM [facility] [address] [place] [address]
[2020-03-26] MEDS ORDERED: PIOGLITAZONE15 MG PO (11:35)
[2020-03-26] MEDS ORDERED: CRESTOR40 MG PO (11:35)
[2020-03-26] MEDS ORDERED: NITROSTAT0.4 MG SL (11:36)
[2020-03-26 11:52] VITALS: BP 138/82; Ht 188 cm; Wt 108.0 kg
[2020-03-26 11:56] LABS: BASOPHILS 1.3 % (0-2); EOSINOPHILS 5.4 % (0-7); HEMATOCRIT 47.8 % (42.0-54.0); HEMOGLOBIN 15.7 g/dL (13.5-17.5); IMMATURE GRANULOCYTES 0.2 % (0-5); LYMPHOCYTES 19.8 % (15-50); MCH 30.4 pg (26.0-34.0); MCHC 32.8 g/dL (31.0-37.0); MCV 92.5 fL (80.0-100.0); MEAN PLATELET VOLUME 10.7 fL (7.4-10.4); MONOCYTES 9.6 % (2-11); NEUTROPHILS 63.7 % (40-80); PLATELET COUNT 193 10x3/uL (130-400); RBC 5.17 10x6/uL (4.20-6.10); RDW 13.7 % (11.5-14.5); WBC 9.4 10x3/uL (4.8-10.8)
[2020-03-26 12:22] LABS: ANION GAP 13.3 mmol/L (8-16); CALCIUM 8.8 mg/dL (8.5-10.1); CARBON DIOXIDE 25.3 mmol/L (21.0-32.0); CHOL - HDL RATIO 2.1 ratio (2.3-4.9); CREATININE - SERUM 1.1 mg/dL (0.6-1.3); LDL-HDL RATIO 0.7 ratio (1.5-3.5); POTASSIUM - SERUM 4.6 mmol/L (3.5-5.1)
--- NOTE | 2020-03-26 13:30 | NUR ---
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 MONITORS ESTAB. AT BS. SEE CROWNING INSPECTOR, ALARMS ON AND C/L IN REACH.
--- NOTE | 2020-03-26 13:45 | NUR ---
R GROIN SITE SOFT, NO S/S BLEEDING OR HEMATOMA. PULSES PALP. PT TAKING SIPS OF WATER, FREQUENT REMINDING TO KEEP R LEG STRAIGHT. VSS. NO S/S DISTRESS. ALARMS ON. AT BS.
--- NOTE | 2020-03-26 14:15 | NUR ---
R GROIN SITE SOFT, NO S/S BLEEDING OR HEMATOMA. PULSES PALP. VSS.
--- NOTE | 2020-03-26 14:30 | NUR ---
R GROIN SITE SOFT, NO S/S BLEEDING OR HEMATOMA. PULSES PALP. VSS. BEGIN GRADUALLY ELEVATING HOB. PT DENIES PAIN OR NEEDS.
--- NOTE | 2020-03-26 14:45 | NUR ---
R GROIN SITE SOFT, C/D/I. HOB UP - SANDWICH TRAY AND DIET COLA PROVIDED. PT ORIENTED/COOPERATIVE AT THIS TIME. ALARMS ON AND C/L IN REACH. REMAINS AT BS.
--- NOTE | 2020-03-26 14:50 | NUR ---
DR. TAN IN TO UPDATE PT AND HIS , QUESTIONS ANSWERED..
--- NOTE | 2020-03-26 15:20 | NUR ---
R GROIN SITE SOFT, NO S/S BLEEDING OR HEMATOMA. PULSES PALP. VSS. PT DENIES PAIN OR NEEDS.
--- NOTE | 2020-03-26 15:30 | NUR ---
PT VOIDED 300ML CLEAR, YELLOW URINE IN URINAL.
--- NOTE | 2020-03-26 15:36 | NUR ---
ALL DISCHARGE TEACHING WITH PT AND HIS - INCLUDING RESTRICTIONS, MEDS, AND F/U APPT. UNDERSTANDING VERBALIZED BY BOTH. PIV D/C'D INTACT, DSG APPLIED. PT ALLOWED UP TO GET DRESSED WITH ASSISTING.
--- NOTE | 2020-03-26 15:50 | NUR ---
PT D/C'D VIA WC TO PRIVATE VEHICLE WITH ALL PAPERWORK AND BELONGINGS.
== END 2020-03-26 15:50 | disposition home or self-care (01) ==
LOC: D.CATH 11:08 → EDSTATUS 13:30 → D.CATH 13:30 → D.HCCARDIO 13:30 → D.CATH 15:50
PROVIDERS: ATTEND Internal Medicine Cardiovascular Disease
DX: I25.119 Atherosclerotic heart disease of native coronary artery with unspecified angina pectoris (principal); R94.39 Abnormal result of other cardiovascular function study; I10 Essential (primary) hypertension; Z95.5 Presence of coronary angioplasty implant and graft; J44.9 Chronic obstructive pulmonary disease, unspecified; K21.9 Gastro-esophageal reflux disease without esophagitis; E11.9 Type 2 diabetes mellitus without complications; Z79.84 Long term (current) use of oral hypoglycemic drugs